=== PATIENT | female | born 2000 | race Caucasian/White ===

== ENCOUNTER → 2021-01-20 | Outpatient (CLI) | payer BC, OTHER | LOC: COL.RAD 08:20 | DX: M25.572 Pain in left ankle and joints of left foot (principal) | CPT/HCPCS: J3301; Q9967 ==

== ENCOUNTER 2021-09-21 14:03 | Emergency (ER) | payer OTHER ==
[~2021-09-21] VITALS: Ht 170.2 cm; Wt 81.8 kg
[2021-09-21 14:17] VITALS: BP 125/87; TEMP 98.6
[2021-09-21] MEDS ORDERED: VIVLODEX5 MG PO (14:22)
[2021-09-21] MEDS ORDERED: FLEXERIL 1010 MG/TAB PO (15:43)
[2021-09-21 15:59] VITALS: PULSE 72
== END 2021-09-21 15:59 | disposition home or self-care (01) ==
LOC: COL.ER 14:03
DX: S39.012A Strain of muscle, fascia and tendon of lower back, initial encounter (principal); V49.40XA Driver injured in collision with unspecified motor vehicles in traffic accident, initial encounter; Y92.410 Unspecified street and highway as the place of occurrence of the external cause
CPT/HCPCS: J1885; J2360

== ENCOUNTER → 2021-09-28 | Outpatient (CLI) | payer OTHER ==
[~2021-09-28] MED LIST: FLEXERIL 1010 MG/TAB PO; VIVLODEX5 MG PO
== END ==
LOC: COL.RAD 09:22
DX: S76.111A Strain of right quadriceps muscle, fascia and tendon, initial encounter (principal); M16.11 Unilateral primary osteoarthritis, right hip; X58.XXXA Exposure to other specified factors, initial encounter
CPT/HCPCS: A9575; J3301; Q9967